=== PATIENT | female | born 1970 | race Caucasian/White ===

== ENCOUNTER 2017-09-12 05:29 | Day surgery (SDC) | payer MEDICAID ==
[2017-09-12] MEDS ORDERED: POLYMYXIN/BACITRACIN 1L IRRIG (07:08)
[2017-09-12] MEDS ORDERED: CEFAZOLIN 2 GM/50 ML (PMX) 50 ML IVPB (07:16)
[2017-09-12] MEDS ORDERED: LIDOCAINE 1% (MDV) 10 ML INJ (07:34)
[2017-09-12] MEDS ORDERED: HEPARIN 1000 UNITS/NS (A-LINE) 1,000 ML (07:34)
[2017-09-12] MEDS ORDERED: MIDAZOLAM 1 MG/ML 2 ML INJ (07:35)
[2017-09-12] MEDS ORDERED: FENTAnyl 50 MCG/ML VIAL (07:35)
[2017-09-12] MEDS ORDERED: LIDOCAINE 1%/EPI 30 ML INJ (07:38)
[2017-09-12] MEDS ORDERED: HEPARIN 1000 UNITS/ML 10 ML INJ (08:04)
[2017-09-12] MEDS: HYDROCODONE/APAP (5/325) TAB PO (09:12)
== END 2017-09-12 10:40 | disposition home or self-care (01) ==
LOC: CCL 05:29 → SDS 05:29 → CCL 10:40
DX: C50.912 Malignant neoplasm of unspecified site of left female breast (principal)
CPT/HCPCS: 36561

== ENCOUNTER 2018-02-04 11:06 | Inpatient (IN) | payer OTHER, MEDICAID ==
[2018-02-04] MEDS: CEFAZOLIN 2 GM/50 ML (PMX) 50 ML IVPB (11:00)
[~2018-02-04 11:06] MED LIST: PROPOFOL 200 MG INJ
[2018-02-04] MEDS ORDERED: METOCLOPRAMIDE 10 MG INJ (11:46)
[2018-02-04] MEDS ORDERED: PROPOFOL 20 ML ×2 (11:46→14:15)
[2018-02-04] MEDS ORDERED: EPHEDrine SULFATE 50 MG/5 ML SYG (11:46)
[2018-02-04] MEDS ORDERED: MIDAZOLAM 1 MG/ML 2 ML INJ (11:46)
[2018-02-04] MEDS ORDERED: CEFAZOLIN 1 GM INJ (11:46)
[2018-02-04] MEDS ORDERED: ONDANSETRON 4 MG INJ (11:46)
[2018-02-04] MEDS ORDERED: FENTAnyl 50 MCG/ML VIAL ×2 (11:46→13:32)
[2018-02-04] MEDS ORDERED: DIPHENHYDRAMINE 50 MG INJ IV (13:00)
[2018-02-04] MEDS ORDERED: HYDROmorphONE 1 MG/5 ML IV SYRINGE IV ×3 (13:00)
[2018-02-04] MEDS ORDERED: PHENYLephrine (100 MCG/ML) 5ML SYG (13:19)
[2018-02-04] MEDS ORDERED: HYDROmorphONE 2 MG/ML SYG (14:02)
[2018-02-04] MEDS ORDERED: FAMOTIDINE 20 MG INJ (14:06)
[2018-02-04] MEDS: SOD CHLORIDE 0.9% 1,000 ML IV (14:55)
[2018-02-04] MEDS: MEPERIDINE 25 MG INJ IV (14:55)
[2018-02-04] MEDS: ONDANSETRON 4 MG INJ IV ×2 (14:55→20:03)
[2018-02-04] MEDS ORDERED: ACETAMINOPHEN 1000MG/100ML IV 100 ML IVPB (15:00)
[2018-02-04] MEDS ORDERED: morphine 2 MG INJ IV (15:00)
[2018-02-04] MEDS: D5W-0.45 NACL + KCL 20 MEQ 1,000 ML IV ×2 (16:15→23:29)
[2018-02-05] MEDS: HYDROCODONE/APAP (5/325) TAB PO ×2 (05:40→14:24)
[2018-02-05] MEDS: D5W-0.45 NACL + KCL 20 MEQ 1,000 ML IV ×2 (06:49→14:35)
[2018-02-05] MEDS ORDERED: ACETAMINOPHEN 500 MG TAB PO (09:00)
[2018-02-05] MEDS ORDERED: morphine LIQ (10 MG/5 ML) CUP PO (17:51)
== END 2018-02-05 19:00 | disposition home or self-care (01) | DRG 582 ==
LOC: SDS 11:06 → MS1 15:45 → SDS 14:36 → MS1 14:36
PROC: 0HTU0ZZ Resection of Left Breast, Open Approach (ICD-10-PCS; principal; 2018-02-04 13:03)
PROC: 07T60ZZ Resection of Left Axillary Lymphatic, Open Approach (ICD-10-PCS; 2018-02-04 13:03)
DX: C50.912 Malignant neoplasm of unspecified site of left female breast (principal); C77.3 Secondary and unspecified malignant neoplasm of axilla and upper limb lymph nodes; Z92.21 Personal history of antineoplastic chemotherapy
CPT/HCPCS: 88307